=== PATIENT | female | born 1990 | race Caucasian/White ===

== ENCOUNTER → 2020-04-21 | Outpatient (CLI) | payer BC | LOC: EROP 09:40 | DX: Z20.822 Contact with and (suspected) exposure to COVID-19 (principal) | CPT/HCPCS: 87635 ==

== ENCOUNTER → 2020-11-27 | Outpatient (CLI) | payer BC | LOC: LAB 09:58 | DX: J02.9 Acute pharyngitis, unspecified (principal) | CPT/HCPCS: 36415; 87081; 87880 ==

== ENCOUNTER → 2021-06-19 | Outpatient (CLI) | payer BC | LOC: LAB 07:16 | DX: Z32.01 Encounter for pregnancy test, result positive (principal) | CPT/HCPCS: 36415; 84702 ==